=== PATIENT | male | born 1935 | race Caucasian/White ===

== ENCOUNTER 2022-12-06 13:12 | Emergency (ER) | payer OTHER ==
[~2022-12-06] VITALS: Ht 180.3 cm; Wt 81.6 kg
[2022-12-06 13:27] VITALS: BP 132/88
[2022-12-06] MEDS ORDERED: HALOPERIDOL IM 5 MG/ML VIAL IM ONE (13:35)
[2022-12-06 14:25] LABS: BASOPHILS % (AUTO) 0.6 % (0.0-2.0); EOSINOPHILS # (AUTO) 0.3 K/uL (0-0.4); EOSINOPHILS % (AUTO) 6.9 % (0.0-4.0); HEMATOCRIT 39.9 % (36-52); HEMOGLOBIN 13.5 g/dL (12.0-18.0); LYMPHOCYTES # (AUTO) 1.2 K/uL (2.0-11.5); LYMPHOCYTES % (AUTO) 24.3 % (20.5-51.1); MEAN CORPUSCULAR HEMOGLOBIN 32 pg (27-31); MEAN CORPUSCULAR HGB CONC 34 g/dL (33-37); MEAN CORPUSCULAR VOLUME 94.9 fL (80-94); MONOCYTES # (AUTO) 0.7 K/uL (0.8-1.0); MONOCYTES % (AUTO) 13.5 % (1.7-9.3); NEUTROPHILS # (AUTO) 2.7 K/uL (1.8-7.7); NEUTROPHILS % (AUTO) 54.7 % (42.2-75.2); PLATELET COUNT (AUTO) 186 K/uL (140-450); RED CELL DISTRIBUTION WIDTH 14.4 % (11.6-13.7); WHITE BLOOD COUNT (AUTO) 4.9 K/uL (4.8-10.8)
[2022-12-06 14:42] LABS: ANION GAP 14.4 (8-16); ASPARTATE AMINOTRANSFERASE 19 U/L (15-37); CARBON DIOXIDE 24.2 mmol/L (21-32); CHLORIDE 107 mmol/L (98-107); CREATININE 0.9 mg/dL (0.6-1.3); GLUCOSE 95 mg/dL (74-106); POTASSIUM 3.6 mmol/L (3.5-5.1); SODIUM SERUM 142 mmol/L (136-145); TOTAL BILIRUBIN 0.4 mg/dL (0.0-1.0); UREA NITROGEN, BLOOD 24 mg/dL (7-18)
--- NOTE | 2022-12-06 16:11 | NUR ---
LIZET MONK PER DR COTTER
--- NOTE | 2022-12-06 16:50 | NUR ---
Continue to await for UA sample. Pt combatative and uncooperative. MD aware.
--- NOTE | 2022-12-06 17:00 | NUR ---
Pt agitated and not cooperating with staff to obtain VS and UA sample. aware.
--- NOTE | 2022-12-06 17:43 | NUR ---
Pt given sandwich and juice. Pt awaiting [facility] ETA to transport pt back to [facility].
--- NOTE | 2022-12-06 19:03 | NUR ---
TRANSPORT ARRIVED TO TRANSPORT PT BACK TO [facility]. WILL GIVE HER REPORT.
--- NOTE | 2022-12-06 19:10 | NUR ---
REPORT GIVEN TO [facility]. PT UNABLE TO SIGN DISCHARGE INSTRUCTIONS DUE TO PT'S HISTORY OF DEMENTIA AND CONFUSION. PT LEFT IN STABLE CONDTION.
--- NOTE | 2022-12-06 19:16 | NUR ---
[facility] [place] CALLED MULTIPLE TIMES BY BS RN AND BY CHARGE NURSE. NO ANSWER.
== END 2022-12-06 19:10 ==
LOC: MED 13:12
DX: R41.82 Altered mental status, unspecified (principal); E78.5 Hyperlipidemia, unspecified; I25.10 Atherosclerotic heart disease of native coronary artery without angina pectoris; F03.90 Unspecified dementia, unspecified severity, without behavioral disturbance, psychotic disturbance, mood disturbance, and anxiety; E11.9 Type 2 diabetes mellitus without complications; Z79.4 Long term (current) use of insulin; Z79.899 Other long term (current) drug therapy
CPT/HCPCS: 36415; 71045; 80053; 85025; 99284

== ENCOUNTER 2023-05-18 13:32 | Inpatient (IN) | payer OTHER ==
[~2023-05-18] VITALS: Ht 170.2 cm; Wt 57.6 kg
[2023-05-18 14:02] VITALS: BP 110/73; PULSE 62; RESP 20; TEMP 97; O2SAT 94
[2023-05-18 14:47] LABS: BASOPHILS % (AUTO) 0.6 % (0.0-2.0); EOSINOPHILS # (AUTO) 0.2 K/uL (0-0.4); EOSINOPHILS % (AUTO) 4.1 % (0.0-4.0); HEMATOCRIT 39.1 % (36-52); LYMPHOCYTES # (AUTO) 0.7 K/uL (2.0-11.5); LYMPHOCYTES % (AUTO) 16.8 % (20.5-51.1); MEAN CORPUSCULAR HEMOGLOBIN 32 pg (27-31); MEAN CORPUSCULAR HGB CONC 33 g/dL (33-37); MEAN CORPUSCULAR VOLUME 95.4 fL (80-94); MONOCYTES # (AUTO) 0.5 K/uL (0.8-1.0); MONOCYTES % (AUTO) 11.9 % (1.7-9.3); NEUTROPHILS # (AUTO) 2.9 K/uL (1.8-7.7); NEUTROPHILS % (AUTO) 66.6 % (42.2-75.2); PLATELET COUNT (AUTO) 144 K/uL (140-450); WHITE BLOOD COUNT (AUTO) 4.3 K/uL (4.8-10.8)
[2023-05-18 15:01] LABS: ALANINE AMINOTRANSFERASE 12 U/L (12-78); ALBUMIN 2.9 g/dL (3.4-5.0); ALKALINE PHOSPHATASE 76 U/L (50-136); ANION GAP 12.1 (8-16); ASPARTATE AMINOTRANSFERASE 13 U/L (15-37); CALCIUM 8.4 mg/dL (8.5-10.1); CARBON DIOXIDE 26.9 mmol/L (21-32); CHLORIDE 108 mmol/L (98-107); CREATININE 1.1 mg/dL (0.6-1.3); GLUCOSE 134 mg/dL (74-106); SODIUM SERUM 143 mmol/L (136-145); TOTAL BILIRUBIN 0.5 mg/dL (0.0-1.0); TOTAL PROTEIN, SERUM 6.2 g/dL (6.4-8.2); UREA NITROGEN, BLOOD 22 mg/dL (7-18)
[2023-05-18] MEDS ORDERED: NACL 0.9% 2,000 ML IV ONE (15:10)
[2023-05-18] MEDS ORDERED: cefTRIAXone 1,000 MG VIAL ONE (15:17)
[2023-05-18 15:48] LABS: ACETAMINOPHEN < 0.5 ug/ml (10-30); SALICYLATE < 2.8 mg/dL (2.8-20.0)
[2023-05-18] MEDS ORDERED: HALOPERIDOL IM 5 MG/ML VIAL ONE (16:09)
[2023-05-18] MEDS ORDERED: HALOPERIDOL IM 5 MG/ML VIAL IM ONE (16:10)
[2023-05-18 16:44] LABS: LACTIC ACID 1.4 mmol/L (0.4-2.0)
[2023-05-18 16:57] VITALS: O2SAT 97
[2023-05-18 17:51] LABS: APPEARANCE,URINE CLEAR (CLEAR); BILIRUBIN,URINE NEGATIVE (NEGATIVE); BLOOD, URINE NEGATIVE (NEGATIVE); COLOR,URINE YELLOW (YELLOW); LEUKOCYTE ESTERASE ,URINE NEGATIVE (NEGATIVE); NITRITE, URINE NEGATIVE (NEGATIVE); PH,URINE 6.5 (5.0-9.0); PROTEIN,URINE NEGATIVE (NEGATIVE); UGLUCOSE NEGATIVE (NEGATIVE)
[2023-05-18] MEDS ORDERED: NACL 0.9% 1,000 ML IV ONE (18:00)
[2023-05-18] MEDS ORDERED: ACETAMINOPHEN 325 MG TAB PO PRN (23:55)
[2023-05-18] MEDS ORDERED: MORPHINE SULFATE 2 MG/ML SYR IVP PRN (23:55)
[2023-05-18] MEDS ORDERED: ONDANSETRON 4 MG/2 ML VIAL IVP PRN (23:55)
[2023-05-18] MEDS ORDERED: HYDROcodone/APAP 5/325 MG 1 TAB TAB PO PRN (23:55)
[2023-05-19] MEDS ORDERED: GABA-641 PO (02:43)
[2023-05-19] MEDS ORDERED: PANT40GR PO (02:43)
[2023-05-19] MEDS ORDERED: MEMA10TA PO (02:43)
[2023-05-19] MEDS ORDERED: LEVO0.155 PO (02:43)
[2023-05-19] MEDS ORDERED: FINA5TAB5 PO (02:43)
[2023-05-19] MEDS ORDERED: ALBU3SOL30 IH (02:43)
[2023-05-19] MEDS ORDERED: ATOR10TA PO (02:43)
[2023-05-19] MEDS ORDERED: DIVA125E1 PO (02:43)
[2023-05-19] MEDS: NACL 0.9% 1,000 ML IV SCH ×2 (05:50→13:15)
[2023-05-19] MEDS ORDERED: HALOPERIDOL IM 5 MG/ML VIAL IM ONE (06:45)
[2023-05-19 08:31] LABS: BASOPHILS % (AUTO) 0.4 % (0.0-2.0); EOSINOPHILS # (AUTO) 0.1 K/uL (0-0.4); EOSINOPHILS % (AUTO) 2.7 % (0.0-4.0); HEMATOCRIT 40.6 % (36-52); HEMOGLOBIN 13.5 g/dL (12.0-18.0); LYMPHOCYTES # (AUTO) 0.7 K/uL (2.0-11.5); LYMPHOCYTES % (AUTO) 16.8 % (20.5-51.1); MEAN CORPUSCULAR HEMOGLOBIN 32 pg (27-31); MEAN CORPUSCULAR HGB CONC 33 g/dL (33-37); MEAN CORPUSCULAR VOLUME 95.1 fL (80-94); MONOCYTES # (AUTO) 0.6 K/uL (0.8-1.0); NEUTROPHILS # (AUTO) 2.9 K/uL (1.8-7.7); NEUTROPHILS % (AUTO) 67.1 % (42.2-75.2); PLATELET COUNT (AUTO) 138 K/uL (140-450); RED BLOOD CELL COUNT(AUTO) 4.27 MIL/uL (4.20-6.10); RED CELL DISTRIBUTION WIDTH 14.1 % (11.6-13.7); WHITE BLOOD COUNT (AUTO) 4.3 K/uL (4.8-10.8)
[2023-05-19 08:51] LABS: ALANINE AMINOTRANSFERASE 11 U/L (12-78); ALBUMIN 3.1 g/dL (3.4-5.0); ALKALINE PHOSPHATASE 79 U/L (50-136); ANION GAP -1.3 (8-16); ASPARTATE AMINOTRANSFERASE 18 U/L (15-37); CALCIUM 8.5 mg/dL (8.5-10.1); CARBON DIOXIDE 25.8 mmol/L (21-32); CHLORIDE 117 mmol/L (98-107); CREATININE 0.8 mg/dL (0.6-1.3); GLUCOSE 77 mg/dL (74-106); MAGNESIUM 1.9 mg/dL (1.8-2.4); PHOSPHORUS 2.7 mg/dL (2.5-4.9); POTASSIUM 3.5 mmol/L (3.5-5.1); SODIUM SERUM 138 mmol/L (136-145); TOTAL BILIRUBIN 0.5 mg/dL (0.0-1.0); TOTAL PROTEIN, SERUM 6.4 g/dL (6.4-8.2); UREA NITROGEN, BLOOD 14 mg/dL (7-18)
[2023-05-19] MEDS ORDERED: DIVALPROEX SPRINKLES 125 MG CAPDR PO SCH (13:00)
[2023-05-19] MEDS ORDERED: FINASTERIDE 5 MG TAB PO SCH (13:00)
[2023-05-19] MEDS ORDERED: cefTRIAXone 1,000 MG VIAL ONE (20:57)
[2023-05-19] MEDS ORDERED: CRUSHER, PILL MC ONE (21:32)
[2023-05-19] MEDS: ATORVASTATIN 20 MG TAB PO SCH (21:36)
[2023-05-19] MEDS: MEMANTINE 10 MG TAB PO SCH (21:37)
[2023-05-20] MEDS: NACL 0.9% 1,000 ML IV SCH ×2 (02:55→15:54)
[2023-05-20 07:39] LABS: BASOPHILS % (AUTO) 0.5 % (0.0-2.0); EOSINOPHILS % (AUTO) 0.5 % (0.0-4.0); HEMATOCRIT 39.5 % (36-52); HEMOGLOBIN 13.4 g/dL (12.0-18.0); LYMPHOCYTES # (AUTO) 0.7 K/uL (2.0-11.5); MEAN CORPUSCULAR HEMOGLOBIN 32 pg (27-31); MEAN CORPUSCULAR HGB CONC 34 g/dL (33-37); MEAN CORPUSCULAR VOLUME 94.5 fL (80-94); MONOCYTES # (AUTO) 0.7 K/uL (0.8-1.0); MONOCYTES % (AUTO) 14.4 % (1.7-9.3); NEUTROPHILS # (AUTO) 3.5 K/uL (1.8-7.7); NEUTROPHILS % (AUTO) 70.6 % (42.2-75.2); PLATELET COUNT (AUTO) 153 K/uL (140-450); RED BLOOD CELL COUNT(AUTO) 4.18 MIL/uL (4.20-6.10); RED CELL DISTRIBUTION WIDTH 13.7 % (11.6-13.7)
[2023-05-20 07:57] LABS: ALANINE AMINOTRANSFERASE 14 U/L (12-78); ALBUMIN 3.2 g/dL (3.4-5.0); ALKALINE PHOSPHATASE 86 U/L (50-136); ASPARTATE AMINOTRANSFERASE 48 U/L (15-37); CALCIUM 8.5 mg/dL (8.5-10.1); CARBON DIOXIDE 23.6 mmol/L (21-32); CHLORIDE 107 mmol/L (98-107); CREATININE 0.9 mg/dL (0.6-1.3); GLUCOSE 106 mg/dL (74-106); MAGNESIUM 1.7 mg/dL (1.8-2.4); PHOSPHORUS 2.6 mg/dL (2.5-4.9); POTASSIUM 3.6 mmol/L (3.5-5.1); SODIUM SERUM 142 mmol/L (136-145); TOTAL BILIRUBIN 0.6 mg/dL (0.0-1.0); TOTAL PROTEIN, SERUM 6.8 g/dL (6.4-8.2); UREA NITROGEN, BLOOD 12 mg/dL (7-18)
[2023-05-20] MEDS ORDERED: PANTOPRAZOLE 40 MG INJ VIAL IVP SCH (09:00)
[2023-05-20 09:56] VITALS: PULSE 84; RESP 18; O2SAT 98
[2023-05-20] MEDS: MEMANTINE 10 MG TAB PO SCH ×2 (10:11→21:48)
[2023-05-20 10:32] VITALS: BP 118/53; PULSE 80; RESP 18; TEMP 97; O2SAT 93
[2023-05-20 12:23] VITALS: PULSE 86
[2023-05-20 15:37] VITALS: BP 93/50; PULSE 78; RESP 17; TEMP 96.8; O2SAT 100
[2023-05-20 16:08] VITALS: PULSE 89
[2023-05-20 20:00] VITALS: BP 126/74; PULSE 85; RESP 15; RESP 16; TEMP 97.6; O2SAT 95
[2023-05-20] MEDS: ATORVASTATIN 20 MG TAB PO SCH (21:53)
[2023-05-21 04:00] VITALS: BP 118/69; PULSE 70; RESP 16; TEMP 97.4; O2SAT 96
[2023-05-21] MEDS: NACL 0.9% 1,000 ML IV SCH (05:15)
[2023-05-21 07:09] LABS: BASOPHILS % (AUTO) 0.6 % (0.0-2.0); EOSINOPHILS % (AUTO) 0.8 % (0.0-4.0); HEMATOCRIT 38.2 % (36-52); HEMOGLOBIN 12.9 g/dL (12.0-18.0); LYMPHOCYTES % (AUTO) 25.6 % (20.5-51.1); MEAN CORPUSCULAR HEMOGLOBIN 32 pg (27-31); MEAN CORPUSCULAR HGB CONC 34 g/dL (33-37); MEAN CORPUSCULAR VOLUME 94.5 fL (80-94); MONOCYTES # (AUTO) 0.6 K/uL (0.8-1.0); MONOCYTES % (AUTO) 15.4 % (1.7-9.3); NEUTROPHILS # (AUTO) 2.4 K/uL (1.8-7.7); NEUTROPHILS % (AUTO) 57.6 % (42.2-75.2); PLATELET COUNT (AUTO) 162 K/uL (140-450); RED BLOOD CELL COUNT(AUTO) 4.04 MIL/uL (4.20-6.10); RED CELL DISTRIBUTION WIDTH 13.7 % (11.6-13.7); WHITE BLOOD COUNT (AUTO) 4.1 K/uL (4.8-10.8)
[2023-05-21 07:40] LABS: ALANINE AMINOTRANSFERASE 14 U/L (12-78); ALBUMIN 2.9 g/dL (3.4-5.0); ALKALINE PHOSPHATASE 74 U/L (50-136); ANION GAP 15.1 (8-16); ASPARTATE AMINOTRANSFERASE 79 U/L (15-37); CALCIUM 8.4 mg/dL (8.5-10.1); CARBON DIOXIDE 23.4 mmol/L (21-32); CHLORIDE 108 mmol/L (98-107); CREATININE 0.9 mg/dL (0.6-1.3); GLUCOSE 93 mg/dL (74-106); MAGNESIUM 1.8 mg/dL (1.8-2.4); PHOSPHORUS 2.6 mg/dL (2.5-4.9); POTASSIUM 3.5 mmol/L (3.5-5.1); SODIUM SERUM 143 mmol/L (136-145); TOTAL BILIRUBIN 0.5 mg/dL (0.0-1.0); TOTAL PROTEIN, SERUM 6.1 g/dL (6.4-8.2); UREA NITROGEN, BLOOD 13 mg/dL (7-18)
[2023-05-21] MEDS: MEMANTINE 10 MG TAB PO SCH ×2 (08:26→21:04)
[2023-05-21] MEDS: FINASTERIDE 5 MG TAB PO SCH (08:35)
[2023-05-21] MEDS: ARIPiprazole 10 MG TAB PO SCH (08:35)
[2023-05-21] MEDS: LEVOTHYROXINE 0.075 MG TAB PO SCH (08:45)
[2023-05-21] MEDS ORDERED: PANTOPRAZOLE 40 MG TABEC PO SCH (09:00)
[2023-05-21] MEDS ORDERED: DIVALPROEX SPRINKLES 125 MG CAPDR PO SCH (09:00)
[2023-05-21 11:34] VITALS: PULSE 88; RESP 15; O2SAT 95
[2023-05-21 12:47] VITALS: BP 145/81; PULSE 70; RESP 18; TEMP 97.9; O2SAT 96
[2023-05-21] MEDS ORDERED: FINA5TAB5 PO (14:10)
[2023-05-21] MEDS ORDERED: ABI10 PO (14:10)
[2023-05-21] MEDS ORDERED: PANT40EC56 PO (14:10)
[2023-05-21] MEDS ORDERED: GABA-636 PO (14:10)
[2023-05-21] MEDS ORDERED: DIVA250E1 PO (14:12)
[2023-05-21 20:00] VITALS: BP 120/69; PULSE 72; RESP 15; RESP 16; TEMP 97.6; O2SAT 94
[2023-05-21] MEDS ORDERED: GABAPENTIN 100 MG CAP PO SCH (21:00)
[2023-05-21] MEDS: ATORVASTATIN 20 MG TAB PO SCH (21:04)
[2023-05-22 04:00] VITALS: BP 129/78; PULSE 63; RESP 16; TEMP 97.5; O2SAT 94
[2023-05-22] MEDS: LEVOTHYROXINE 0.075 MG TAB PO SCH (06:01)
[2023-05-22 08:00] VITALS: PULSE 64; RESP 18; O2SAT 96
[2023-05-22] MEDS ORDERED: DIVALPROEX 250 MG TABEC PO SCH (09:00)
[2023-05-22] MEDS ORDERED: LANSOPRAZOLE 30 MG CAPDR PO SCH (09:10)
[2023-05-22] MEDS ORDERED: VALPROIC ACID 250 MG/5 ML UDC PO SCH (09:28)
[2023-05-22] MEDS: FINASTERIDE 5 MG TAB PO SCH (09:30)
[2023-05-22] MEDS: ARIPiprazole 10 MG TAB PO SCH (09:30)
[2023-05-22] MEDS: MEMANTINE 10 MG TAB PO SCH (09:31)
[2023-05-22 12:00] VITALS: BP 108/64; TEMP 96.9
== END 2023-05-22 13:50 | DRG 312 ==
LOC: MED 13:32 → MMU 23:56 → MTU 23:59
PROVIDERS: ADMIT Student in an Organized Health Care Education/Training Program; ATTEND Student in an Organized Health Care Education/Training Program
DX: R55 Syncope and collapse (principal); Z68.1 Body mass index [BMI] 19.9 or less, adult; E44.0 Moderate protein-calorie malnutrition; N40.0 Benign prostatic hyperplasia without lower urinary tract symptoms; E03.9 Hypothyroidism, unspecified; E78.5 Hyperlipidemia, unspecified; E11.40 Type 2 diabetes mellitus with diabetic neuropathy, unspecified; Z66 Do not resuscitate; I25.10 Atherosclerotic heart disease of native coronary artery without angina pectoris; Z20.822 Contact with and (suspected) exposure to COVID-19; F03.90 Unspecified dementia, unspecified severity, without behavioral disturbance, psychotic disturbance, mood disturbance, and anxiety; Z86.73 Personal history of transient ischemic attack (TIA), and cerebral infarction without residual deficits
CPT/HCPCS: 36415; 70450; 71045; 80053; 81003; 82140; 83605; 83735; 83880; 84100; 84484; 85025; 85379; 87040; 87081; 92526; 93005; 96361; 96365; 96372; 97163-GP; 97530; 99285; C9113; G0480; J0696; J1630; J1644; J7060